=== PATIENT | female | born 1955 | race Asian ===

== ENCOUNTER 2021-02-27 15:04 | Outpatient (CLI) | payer OTHER | END 2021-02-27 22:30 | disposition home or self-care (01) | LOC: LAB 15:04 | PROVIDERS: ATTEND Internal Medicine Nephrology | DX: E87.6 Hypokalemia (principal) | CPT/HCPCS: 84132 ==

== ENCOUNTER 2021-11-06 10:07 | Emergency (ER) | payer OTHER ==
[~2021-11-06] VITALS: Ht 165.1 cm; Wt 85.3 kg
[2021-11-06 10:07] VITALS: TEMP 97.1
[2021-11-06 11:16] LABS: PLATELET COUNT 563 K/uL (152-353)
[2021-11-06 11:27] LABS: PARTIAL THROMBOPLASTIN TIME 25.7 SECONDS (24.5-33.6)
[2021-11-06 22:25] VITALS: BP 105/58
== END 2021-11-06 22:25 | disposition short-term general hospital (02) ==
LOC: ED 10:07
PROVIDERS: Emergency Medicine
PROC: 0BH17EZ Insertion of Endotracheal Airway into Trachea, Via Natural or Artificial Opening (ICD-10-PCS; principal; 2021-11-06)
PROC: 06HM33Z Insertion of Infusion Device into Right Femoral Vein, Percutaneous Approach (ICD-10-PCS; 2021-11-06)
PROC: 5A1935Z Respiratory Ventilation, Less than 24 Consecutive Hours (ICD-10-PCS; 2021-11-06)
DX: U07.1 COVID-19 (principal); J18.9 Pneumonia, unspecified organism; R06.02 Shortness of breath
CPT/HCPCS: 31500; 36600; 80053; 82550; 82805; 82948; 83605; 83735; 83880; 84484; 85027; 85379; 85610; 85730; 87040; 87077; 87185; 87186; 87205; 87635; 94002; 96360; 96365; 96366; 96375; 99285; C1768; J1265; J1815; J1956; J2185; J2250; J3370; J3490; Q9963; U0003

== ENCOUNTER 2021-12-30 10:45 | Emergency (ER) | payer OTHER ==
[~2021-12-30] VITALS: Ht 165.1 cm; Wt 85.3 kg
[2021-12-30 11:27] LABS: PARTIAL THROMBOPLASTIN TIME 62.1 SECONDS (24.5-33.6)
[2021-12-30 11:31] LABS: PLATELET COUNT 237 K/uL (152-353)
== END 2021-12-30 14:20 | disposition expired ==
LOC: ED 10:50
PROVIDERS: Hospitalist
PROC: 5A12012 Performance of Cardiac Output, Single, Manual (ICD-10-PCS; principal; 2021-12-30)
DX: I46.9 Cardiac arrest, cause unspecified (principal); N18.6 End stage renal disease; Z99.2 Dependence on renal dialysis; I50.9 Heart failure, unspecified; Z20.822 Contact with and (suspected) exposure to COVID-19
CPT/HCPCS: 80053; 82948; 83880; 84484; 85027; 85379; 85610; 85730; 87635; 92950; 96360; 96374; 96375; 96376; 99285; J0171; J0282; J3490; J7060; U0003